=== PATIENT | female | born 1960 | race Native Hawaiian/Other Pacific Islander ===

== ENCOUNTER 2021-05-29 16:32 | Inpatient (IN) | payer SELFPAY ==
[~2021-05-29] VITALS: Ht 162.6 cm; Wt 143.4 kg
[2021-05-29] MEDS ORDERED: ONDANSETRON 4 MG/2 ML (SDV) Z0FRAN IV PRN (16:45)
[2021-05-29] MEDS ORDERED: guaiFENesin/CODEINE (ROBITUSSIN AC) 10ML UDC PO PRN (16:45)
[2021-05-30] VITALS (30 sets, daily range): BP systolic 73–146; BP diastolic 29–83
[2021-05-30] MEDS: NOREPINEPHRINE 8 MG/250 ML 250 ML IV SCH ×6 (05:22→21:44)
[2021-05-30] MEDS: fentaNYL DRIP PRE-MIX 250 ML IV SCH ×3 (05:26→20:32)
[2021-05-30] MEDS: PROPOFOL DRIP (ICU) 100 ML IV SCH ×4 (05:26→20:31)
[2021-05-30 05:52] LABS: BASOPHILS % (AUTO) 0 % (0-10); EOSINOPHILS % (AUTO) 0 % (0-10); HEMATOCRIT 50 % (35-52); HEMOGLOBIN 15.6 g/dL (11.5-16.0); LYMPHOCYTES # (AUTO) 0.7 10^3/uL (1.0-4.0); LYMPHOCYTES % (AUTO) 6 % (12-44); MEAN CORPUSCULAR HEMOGLOBIN 30 pg (25-34); MEAN CORPUSCULAR HGB CONC 31 g/dL (32-36); MEAN CORPUSCULAR VOLUME 97 fL (80-99); MEAN PLATELET VOLUME 10.6 fL (9.0-12.2); MONOCYTES # (AUTO) 0.7 10^3/uL (0.0-1.0); MONOCYTES % (AUTO) 6 % (0-12); NEUTROPHILS # (AUTO) 10.4 10^3/uL (1.8-7.8); NEUTROPHILS % (AUTO) 88 % (42-75); PLATELET COUNT 218 10^3/uL (130-400); WHITE BLOOD COUNT 11.8 10^3/uL (4.3-11.0)
[2021-05-30 05:59] LABS: ABG BASE EXCESS -1.6 MMOL/L (-2.5-2.5); ABG OXYGEN SATURATION 97 % (94-100); ABG PCO2 60 MMHG (35-45); ABG PO2 115 MMHG (79-93)
[2021-05-30 06:01] LABS: POTASSIUM 4.5 MMOL/L (3.6-5.0)
[2021-05-30 06:01] LABS: ABG PH 7.25 (7.37-7.43)
[2021-05-30 06:02] LABS: ALLENS TEST YES-POS; INSPIRED O2 100%; PATIENT TEMP 101.9; VENTILATOR YES
[2021-05-30 06:07] LABS: CREATININE SERUM 1.07 MG/DL (0.60-1.30); PHOSPHORUS 5.5 MG/DL (2.3-4.7)
[2021-05-30 06:09] LABS: MAGNESIUM 2.1 MG/DL (1.6-2.4)
[2021-05-30] MEDS: KCL 20 MEQ TAB (K-DUR) PO SCH (06:48)
[2021-05-30] MEDS: POTASSIUM CL 10MEQ/50ML IVPB 50 ML IV SCH (06:55)
[2021-05-30] MEDS: MAGNESIUM 1 GM/100 ML IVPB 100 ML IV SCH (06:55)
--- NOTE | 2021-05-30 06:55 | Diagnostic Imaging Report ---
EXAMINATION: Chest 1 view HISTORY: Pneumonia COMPARISON: None available. FINDINGS: Heart size is enlarged. Endotracheal tube is present approximately 4 cm above the sosa. An enteric catheter is seen coursing below the diaphragm. There are low lung volumes with patchy interstitial opacities seen throughout both lungs. No pleural effusion or pneumothorax. The osseous structures are intact. IMPRESSION: 1. Cardiomegaly with patchy interstitial opacities seen throughout both lungs compatible with history of COVID 19 and pneumonia. 2. Enteric catheter and endotracheal tube in appropriate position. Report was faxed to [facility] by abena at 6:53am. Dictated by: Dictated on workstation # [id number]
[2021-05-30] MEDS ORDERED: ENOXAPARIN 40 MG/0.4 ML (LOVENOX) SYR SC SCH (07:00)
--- NOTE | 2021-05-30 07:33 | Tele-ICU Consult ---
History of Present Illness History of Present Illness Date Seen by Provider: May 30, 2021 Time Seen by Provider: 07:33 Date of Admission Allergies and Home Medications Allergies Coded Allergies: No Allergy Information Available (Unverified , 05/29/21) Past Medical/Social/Family Hx Patient Social History Smoking Status: Unknown if Ever Smoked Smokeless Tobacco Frequency: Unknown if Ever Used E-Cig and/or Vaping Freq: Unknown if Ever Used Substance use?: Unable to obtain Pt stated abuse/neglect: Unable to obtain Current Status Advance Directives: Unable to obtain Communicates: Unable To Communicate Review of Systems Constitutional: see HPI Sepsis Event Evaluation Height, Weight, BMI Height: '" Weight: lbs. oz. kg; 48.67 BMI Method: Exam Exam Patient acknowledged, consented, and participated in this virtual visit which was conducted using real time audio/video Vital Signs Date Time Temp Pulse Resp B/P (MAP) Pulse Ox O2 Delivery O2 Flow Rate FiO2 05/30/21 06:45 111 17 120/51 (74) 93 Mechanical Ventilator 100.00 05/30/21 06:38 109 20 94 100 05/30/21 06:30 112 18 108/41 (63) 94 Mechanical Ventilator 100.00 05/30/21 06:15 113 18 108/53 (66) 95 Mechanical Ventilator 100.00 05/30/21 06:00 111 18 100/50 (63) 95 Mechanical Ventilator 100.00 05/30/21 05:55 108 31 103/57 (80) 94 Mechanical Ventilator 100.00 05/30/21 05:55 100 103/87 05/30/21 05:45 113 18 82/34 (59) 93 Mechanical Ventilator 100.00 05/30/21 05:45 105 82/34 05/30/21 05:43 113 18 76/29 (53) 92 Mechanical Ventilator 100.00 05/30/21 05:36 115 18 91 100 05/30/21 05:34 113 38 73/45 (56) 91 Mechanical Ventilator 100.00 05/30/21 05:31 118 64/38 05/30/21 05:23 117 05/30/21 05:22 38.9 117 20 81/41 (54) 83 Mechanical Ventilator 100.00 05/30/21 05:22 117 81/41 05/30/21 05:15 Mechanical Ventilator 100 Height & Weight Height: '" Weight: lbs. oz. kg; 48.67 BMI Method: General Appearance: No Apparent Distress Results Lab Laboratory Tests 05/30/21 05:45 Assessment/Plan Assessment/Plan Tele-ICU Physician , consultation) Available chart/ vitals / labs / Images reviewed transferred from other hospotal / state allergy reviewed in EMR. ROS is unobtainable Patient admitted 05/30 - ARF , COVID , intubated 03/29 - > trnsferred to ICU Now in ICU, hemodynamically stable Video assessment done using teleICU camera, rest of exam as per RN Discussed with RN. Consultants: Sedation gtt: ( RASS ) VENT SETTINGS. AC 18 -490 -100% +18 . PAP 35 ABG reviewed A/P AHRF / ARDS due to severe COVID19 - intubated 03/30 AC 18 -490 -100% +18 . PAP 35 - will adjust vent accordisng ARDS protocol with tv 7 cc/kg IBW -> AC rr 26 tv 400 100 + 18 -prone position if able - conservative fluid strategy (aim for even or negative fluid balance HJJB-Xdfizrqudlg-9/COVID-19 PNA ( Not vaccinated , Dx 05/29 ) -Remdesivir- as per local MD ( given sever dz no major clinical benefit ) -Steroids IV - started 05/29 -Hypercoagulable state - will check DDIMER , on lovenox ppx dose now Shock - on levo , will check PCT - ? infection , will gollow coffee grounf NG - ? GIB monitor for superimposed bact PNA - ordering PCT -Cx sputum , blood , ua Hyperflycemia - ISS , close f/up on steroids Coffee grounds secretion on OG - PPI bid , follow H/o asthma - monitor airway pressure - might need higher dose of steroids - br- dilators h/o ETOH - start thiamine Lines : will need PICC or central line (Central Line Necessity Reviewed) Anton: 05/29 OG: + Nutrition: Analgesia: Anxiety/ delirium VTE Prophylaxis: lovenoc proph Stress Ulcer Prophylaxis: ppi Glycemic Control: + Plans in collaboration with bedside consultants and IM MDs. Discussed with RN to reach out if any questions or concerns A total of 40 minutes of critical care time was devoted to this patient today, required to treat and/or prevent further deterioration of critical care condition ( as above ) . FAVIO FOREMAN MD May 30, 2021 07:33
[2021-05-30 07:39] LABS: ALBUMIN 3.5 GM/DL (3.2-4.5)
[2021-05-30 07:42] LABS: TOTAL PROTEIN 7.2 GM/DL (6.4-8.2)
[2021-05-30 07:44] LABS: BILIRUBIN,TOTAL 2.7 MG/DL (0.1-1.0)
[2021-05-30 07:48] LABS: BILIRUBIN,DIRECT 2.1 MG/DL (0.0-0.3); BILIRUBIN,INDIRECT 0.6 MG/DL
[2021-05-30] MEDS: PANTOPRAZOLE 40 MG (PROTONIX) VIAL IV SCH ×2 (08:10→20:38)
--- NOTE | 2021-05-30 08:53 | History & Physical-Hospitalist ---
History of Present Illness HPI/Chief Complaint Pt is a 60yoCF with a PMH of asthma who presented to an outside ER in [place], [place] due to SOB. She is intubated and sedated and no ROS possible. All ROS is from the chart and from her . He reports that he got COVID last week and she had been caring for him. 1 week ago she started to feel ill and yesterday acutely worsened. Her main symptoms were SOB and weakness. Her states that he was barely able to get her to the car to bring her to the ER. On arrival to the ER she was hypoxic in the 70s and placed on HFNC without much improvement so was plced on Vapotherm. The ER in [place] attempted to transfer her to over 30 facilities for ICU level care. She continued to decompensate in the ER and intubation prior to transfer was felt to be the safest route. Source: patient Date Seen 05/30/21 Time Seen by a Provider: 08:48 Attending Physician Chuck Spears MD PCP Referring Physician Date of Admission May 30, 2021 at 05:13 Home Medications & Allergies Home Medications Reviewed patient Home Medication Reconciliation performed by pharmacy medication reconciliations transport technician and/or nursing. Patients Allergies have been reviewed. Allergies Allergies Coded Allergies No Allergy Information Available (Unverified05/29/21) Past Zeralbg-Rruaeu-Xpzeel Hx Patient Social History Marrital Status: Smoking Status: Former Smoker Substance use?: No Additional alcohol type: quit one month ago Pt feels they are or have been: Unable to obtain Immunizations Up To Date First/Initial COVID19 Vaccinat: unvaccinated Current Status Advance Directives: Unable to obtain Communicates: Unable To Communicate Past Medical History Asthma Family Medical History Reviewed Nursing Family Hx No Pertinent Family Hx Review of Systems Constitutional: see HPI Physical Exam Physical Exam Vital Signs Vital Signs - First Documented 05/30/21 05/30/21 05:15 05:22 Temp 38.9 Pulse 117 Resp 20 B/P (MAP) 81/41 Pulse Ox 83 O2 Delivery Mechanical Ventilator O2 Flow Rate 100.00 FiO2 100 Capillary Refill : Height, Weight, BMI Height: '" Weight: lbs. oz. kg; 48.67 BMI Method: General Appearance: Chronically ill, Obese, Other (intubated and sedated) HEENT: Moist Mucous Membranes; No Scleral Icterus (L), No Scleral Icterus (R) Neck: Normal Inspection, Supple Respiratory: Rhonci; No Wheezing; Other (on vent) Cardiovascular: No Murmur, Tachycardia Gastrointestinal: Normal Bowel Sounds, Non Tender, Soft Results Results/Procedures Labs Laboratory Tests 05/30/21 05:45 Patient resulted labs reviewed. Assessment/Plan Admission Diagnosis Acute hypoxic respiratory failure Admission Status: Inpatient Order (span 2 midnights) Reason for Inpatient Admission: see below Assessment and Plan Acute hypoxic respiratory failure due to COVID19 Asthma Currently sedated and on ventilator TeleICU consulted for vent management, appreciate recs Solumedrol Procal slightly up today, if stabilizes or lower tomrorow will consider baricitnib Prone as able MAT protocol Continue IV abx Elevated troponin troponin at outside facility 0.2 trend Telemetry H/o alcohol abuse chronic transaminitis Trend liver enzymes Per she quite drinking 1 month ago Hyperglycemia denies history of DM Likely due to steroids Diagnosis/Problems Diagnosis/Problems (1) COVID-19 (2) Asthma Qualifiers: Asthma severity: moderate Asthma persistence: persistent Asthma complic ation type: unspecified Qualified Codes: J45.40 - Moderate persistent asthma, uncomplicated (3) Obesity (4) Transaminitis (5) Acute respiratory failure CHUCK SPEARS MD May 30, 2021 08:53
[2021-05-30] MEDS ORDERED: THIAMINE 100 MG/ML 2 ML (VITAMIN B-1) VIAL IV ONE (09:00)
[2021-05-30] MEDS ORDERED: HYDROmorphone 2 MG/ML VIAL (DILAUDID) ONE (09:12)
[2021-05-30] MEDS ORDERED: HYDROmorphone 2 MG/ML VIAL (DILAUDID) IV PRN (09:15)
[2021-05-30] MEDS ORDERED: ROCURONIUM 10 MG/ML 5 ML SYRINGE IV ONE ×2 (09:27→09:29)
[2021-05-30] MEDS ORDERED: methylPREDNISolone 125 MG (Solu-MEDROL) VIAL ONE (09:30)
[2021-05-30] MEDS ORDERED: meTOprolol 5 MG/5 ML (LOPRESSOR) VIAL ONE (09:32)
[2021-05-30] MEDS ORDERED: meTOprolol 5 MG/5 ML (LOPRESSOR) VIAL IV ONE ×2 (09:45→10:30)
[2021-05-30] MEDS ORDERED: FUROSEMIDE 40 MG/4 ML INJ (LASIX) ONE (09:51)
[2021-05-30] MEDS ORDERED: FUROSEMIDE 40 MG/4 ML INJ (LASIX) IVP ONE (10:00)
[2021-05-30] MEDS ORDERED: ACETAMINOPHEN 500 MG TAB (TYLENOL) PO ONE (10:00)
[2021-05-30] MEDS: RT-ALBUTEROL HFA 8.5 GM INHALER IH SCH ×4 (10:08→22:13)
[2021-05-30] MEDS: cefTRIAXone 1,000 MG in WATER (STERILE) FOR INJECTION 10 ML IV SCH (10:22)
[2021-05-30] MEDS: LACTATED RINGERS 1,000 ML IV SCH ×2 (10:22→20:35)
[2021-05-30] MEDS: methylPREDNISolone 40 MG/ML (Solu-MEDROL) VIAL IV SCH ×2 (10:30→21:42)
[2021-05-30] MEDS: CISATRACURIUM DRIP 250 ML IV SCH ×4 (10:40→23:27)
[2021-05-30] MEDS ORDERED: IPRA0.2S51 IH (10:43)
[2021-05-30] MEDS ORDERED: FLUT1BLS10 IH (10:43)
[2021-05-30] MEDS ORDERED: ALB0.5V INH (10:43)
[2021-05-30] MEDS ORDERED: RT-ALBUINH IH (10:43)
[2021-05-30] MEDS ORDERED: IBUP-2185 PO (10:43)
[2021-05-30] MEDS ORDERED: MONT10TA32 PO (10:43)
[2021-05-30] MEDS ORDERED: ACET-2267 PO (10:43)
[2021-05-30] MEDS ORDERED: TIOT4MIS2 IH (10:43)
[2021-05-30] MEDS: inSUlin ASPART (NovoLOG) 1 UNIT/0.01 ML (CHARGE PER UNIT) SC SCH ×4 (11:40→23:06)
--- NOTE | 2021-05-30 11:59 | Diagnostic Imaging Report ---
INDICATION: Line placement. FINDINGS: The catheter via the left upper extremity has its distal tip at or just below the junction of the innominate and upper SVC. The ET tube is in the mid thoracic trachea. The heart size is prominent but unchanged. Some patchy 5 lobed interstitial opacities are unchanged. IMPRESSION: 1. The left-sided catheter tip distally is near the junction of the innominate/upper SVC. 2. Bilateral infiltrates and upper limits heart size are unchanged. 3. No pneumothorax. Dictated by: Dictated on workstation # [id number]
[2021-05-30] MEDS: ESMOLOL DRIP PREMIX 250 ML IV SCH ×2 (12:00→18:01)
--- NOTE | 2021-05-30 12:22 | CONSULTATION REPORT ---
DATE OF SERVICE: 05/30/2021 HISTORY OF PRESENT ILLNESS: The patient is a 60-year-old female with past medical history of asthma, who was transferred to [facility] ICU due to symptomatic COVID-19 infection and lack of ICU critical care beds in the entire state of [place] in [place]. She is from [place], [place] and developed shortness of breath and was conservatively treated; however, she continued to have worsening shortness of breath requiring intubation. When she was seen in the Emergency Department, her oxygen saturations were in the 70s and she was placed on high-flow nasal cannula oxygen; however, she continued to decompensate requiring intubation. The patient is also hypotensive and will require central venous catheter for multiple medications simultaneously. PAST MEDICAL HISTORY: Asthma. PAST SURGICAL HISTORY: None known. ALLERGIES: No known drug allergies. MEDICATIONS: Albuterol inhaler 1 puff q.4 hours p.r.n., montelukast 10 mg daily, Spiriva 2 puffs daily, ipratropium bromide 0.2 mg q.8 hours p.r.n., fluticasone/salmeterol b.i.d. SOCIAL HISTORY: Previous smoker. Previous alcohol; however, quit approximately one month ago. FAMILY HISTORY: Unknown. VITAL SIGNS: Temperature 39.1, blood pressure 88/59, pulse 126, respirations 26, mechanical ventilation, 100% FiO2 and a pulse oximetry of 83%. REVIEW OF SYSTEMS: This is a critically ill patient currently on the vent and sedated. She does not respond to any stimulus. She was experiencing significant shortness of breath and does have a history of asthma. No known chest pain, palpitations, diaphoresis. No nausea, vomiting, no diarrhea or constipation. She also does report fevers and has been afebrile since being admitted. PHYSICAL EXAMINATION: CHEST: Scattered rales bilaterally. HEART: Regular, no murmurs. EXTREMITIES: No lower extremity edema, negative Homans sign. HEENT: No scleral icterus. NECK: No cervical lymphadenopathy. ABDOMEN: Soft, nontender, nondistended. SKIN: Warm, dry. LABORATORY DATA: WBC 11.8, hemoglobin 15.6, hematocrit 50, platelets 218, BUN 20, creatinine 1.07. Total bilirubin 2.7, AST 169, ALT 98. ASSESSMENT AND PLAN: A 60-year-old female in respiratory failure secondary to COVID-19 delta variant, who continues to be hypoxic while on 100% FiO2 ventilator and also is hypotensive and will require multiple IV medications simultaneously and will require a central venous catheter, which we will place. Job ID: [id number] DocumentID: [id number] Dictated Date: 05/30/2021 12:00:49 Slider Assembler Date: 05/30/2021 12:21:36 Dictated By: LINDY MOE MD
[2021-05-30] MEDS ORDERED: ENOXAPARIN 100 MG/1 ML (LOVENOX) SYR SC NR (13:45)
--- NOTE | 2021-05-30 14:52 | Consultation-Cardiology ---
HPI-Cardiology Cardiology Consultation Date of Consultation 05/30/21 Date of Admission Time Seen by Provider: 14:46 Indication: Elevated troponin level HPI 60 years old lady, intubated, sedated, unable to provide any history, history was obtained by reviewing her record. Patient was admitted with acute respiratory failure secondary to COVID-19 infection that she required last week, she started to feel ill and having worsening symptoms and became short of breath and weak, she was barely able to get to her car prior to arriving to the emergency room. On arrival to the ER patient was hypoxic, proceeded to respiratory failure and she was initially on Vapotherm then she is intubated and now she is in prone positioning. She was noted to have elevation in troponin level. Had episodes of tachycardia Home Medications & Allergies Allergies: Coded Allergies: No Allergy Information Available (Unverified , 05/29/21) Home Medication List Reviewed: Yes BNF-Wtipvx-Gnmadq Hx Patient Social History Marital Status: Smoking Status: Former Smoker Have you traveled recently?: Unable to obtain Past Medical History Unable to provide past medical history Family Medical History Significant Family History: No Pertinent Family Hx Family Medical Hx Unable to provide family history Review of Systems-General Review of Systems Constitutional: see HPI, other (Sedated and intubated, unable to provide review of system other than what was described above) Reviewed Test Results Reviewed Test Results Lab Laboratory Tests Test 05/30/21 05:45 05/30/21 05:55 05/30/21 08:40 05/30/21 11:10 Range/Units White Blood Count 11.8 H 4.3-11.0 10^3/uL Red Blood Count 5.16 H 3.80-5.11 10^6/uL Hemoglobin 15.6 11.5-16.0 g/dL Hematocrit 50 35-52 % Mean Corpuscular Volume 97 80-99 fL Mean Corpuscular Hemoglobin 30 25-34 pg Mean Corpuscular Hemoglobin Concent 31 L 32-36 g/dL Red Cell Distribution Width 13.8 10.0-14.5 % Platelet Count 218 130-400 10^3/uL Mean Platelet Volume 10.6 9.0-12.2 fL Immature Granulocyte % (Auto) 0 % Neutrophils (%) (Auto) 88 H 42-75 % Lymphocytes (%) (Auto) 6 L 12-44 % Monocytes (%) (Auto) 6 0-12 % Eosinophils (%) (Auto) 0 0-10 % Basophils (%) (Auto) 0 0-10 % Neutrophils # (Auto) 10.4 H 1.8-7.8 10^3/uL Lymphocytes # (Auto) 0.7 L 1.0-4.0 10^3/uL Monocytes # (Auto) 0.7 0.0-1.0 10^3/uL Eosinophils # (Auto) 0.0 0.0-0.3 10^3/uL Basophils # (Auto) 0.0 0.0-0.1 10^3/uL Immature Granulocyte # (Auto) 0.1 0.0-0.1 10^3/uL Sodium Level 139 135-145 MMOL/L Potassium Level 4.5 3.6-5.0 MMOL/L Chloride Level 104 98-107 MMOL/L Carbon Dioxide Level 22 21-32 MMOL/L Anion Gap 13 5-14 MMOL/L Blood Urea Nitrogen 20 H 7-18 MG/DL Creatinine 1.07 0.60-1.30 MG/DL Estimat Glomerular Filtration Rate 52 BUN/Creatinine Ratio 19 Glucose Level 204 H 70-105 MG/DL Calcium Level 9.0 8.5-10.1 MG/DL Phosphorus Level 5.5 H 2.3-4.7 MG/DL Magnesium Level 2.1 1.6-2.4 MG/DL Total Bilirubin 2.7 H 0.1-1.0 MG/DL Direct Bilirubin 2.1 H 0.0-0.3 MG/DL Indirect Bilirubin 0.6 MG/DL Aspartate Amino Transf (AST/SGOT) 169 H 5-34 U/L Alanine Aminotransferase (ALT/SGPT) 98 H 0-55 U/L Alkaline Phosphatase 884 H 40-136 U/L Total Protein 7.2 6.4-8.2 GM/DL Albumin 3.5 3.2-4.5 GM/DL Triglycerides Level 154 H <150 MG/DL Procalcitonin 1.80 H <0.10 NG/ML Blood Gas Puncture Site LEFT RADIAL Blood Gas Patient Temperature 101.9 Arterial Blood pH 7.25 *L 7.37-7.43 Arterial Blood Partial Pressure CO2 60 H 35-45 MMHG Arterial Blood Partial Pressure O2 115 H 79-93 MMHG Arterial Blood HCO3 24 23-27 MMOL/L Arterial Blood Total CO2 26.0 21.0-31.0 MMOL/L Arterial Blood Oxygen Saturation 97 94-100 % Arterial Blood Base Excess -1.6 -2.5-2.5 MMOL/L Luke Test YES-POS Blood Gas Ventilator Setting YES Blood Gas Inspired Oxygen 100% Lactic Acid Level 1.61 0.50-2.00 MMOL/L Glucometer 132 H 70-110 MG/DL Test 05/30/21 11:45 05/30/21 12:50 Range/Units D-Dimer 2.43 H 0.00-0.49 UG/ML Troponin I 9.603 *H <0.028 NG/ML Physical Exam Physical Exam Vital Signs Vital Signs - First Documented 05/30/21 05/30/21 05:15 05:22 Temp 38.9 Pulse 117 Resp 20 B/P (MAP) 81/41 Pulse Ox 83 O2 Delivery Mechanical Ventilator O2 Flow Rate 100.00 FiO2 100 Capillary Refill : Height, Weight, BMI Height: '" Weight: lbs. oz. kg; 48.67 BMI Method: General Appearance: Chronically ill, Obese, Other (intubated and sedated) HEENT: Moist Mucous Membranes; No Scleral Icterus (L), No Scleral Icterus (R) Neck: Normal Inspection, Supple Respiratory: Rhonci; No Wheezing; Other (on vent) Cardiovascular: Tachycardia Neurologic/Psychiatric: Other (Sedated and intubated) A/P-Cardiology Admission Diagnosis Acute respiratory failure Sinus tachycardia Type II myocardial infarction COVID-19 pneumonia Assessment/Plan Acute respiratory failure secondary to COVID-19 pneumonia, sedated and intubated, in prone positioning, managed by primary care team. Paroxysmal atrial tachycardia/sinus tachycardia secondary to respiratory failure and hypoxemia in addition to agitation, receiving IV beta-blockers as needed. Continue to monitor heart rate Elevated troponin level, probably type II myocardial infarction secondary to severe hypoxemia and tachycardia, underlying coronary artery disease cannot be excluded. We will continue monitoring and trending. Started on Lovenox 100 mg subcutaneous twice daily. Continue to monitor Abnormal EKG with poor R wave progression in the anterior leads suggestive of old myocardial infarction, it could be secondary to positioning of the lead and respiratory failure. Continue to monitor the trend. Elevated liver enzymes, secondary to sepsis, receiving IV fluids, continue to monitor Obesity, BMI 48. Ventilator dependent. At this point I recommend supportive care, continue with IV fluid, the use of beta-blockers as needed, planning to evaluate 2D echo. Improve oxygenation and ventilation, monitor serial x-ray and monitor EKG closely. CARLA GODDARD MD May 30, 2021 14:52
[2021-05-30 14:54] LABS: ABG BASE EXCESS -5.3 MMOL/L (-2.5-2.5); ABG OXYGEN SATURATION 90 % (94-100); ABG PCO2 53 MMHG (35-45); ABG PO2 82 MMHG (79-93)
[2021-05-30 14:58] LABS: ABG PH 7.23 (7.37-7.43)
[2021-05-30 14:59] LABS: INSPIRED O2 100%; PATIENT TEMP 39.4; VENTILATOR NO
--- NOTE | 2021-05-30 15:30 | OPERATIVE REPORT ---
DATE OF SERVICE: 05/30/2021 ADMITTING PHYSICIAN: Dr. Spears. PREOPERATIVE DIAGNOSIS: COVID-19 respiratory failure and critical illness. POSTOPERATIVE DIAGNOSIS: COVID-19 respiratory failure and critical illness. PROCEDURE: Placement of left subclavian central venous catheter. SURGEON: Lindy Moe MD. ANESTHESIA: General. ESTIMATED BLOOD LOSS: Minimal. DISPOSITION: The patient tolerated the procedure well. INDICATIONS: The patient is a 60-year-old female who is from [place], [place]. She was found to be COVID positive and was initially treated conservatively at home; however, she had worsening shortness of breath requiring high flow oxygen; however, her oxygen saturations continued to be low in the 70s requiring intubation. As of now, there are no ICU beds available in the [facility] [place] and she was transferred to [facility] for ICU critical care. She continues to be hypoxic with oxygen saturation of 83 on 100% FiO2 and also hypotensive and will require multiple medications simultaneously and will require central venous catheter. DESCRIPTION OF PROCEDURE: The chest and neck were prepped and draped in standard surgical fashion. The left subclavian vein was then cannulated with drawing of venous blood. The guidewire was then inserted without any resistance. Cannulating needle removed and a skin incision made using 11 blade. A tract was then created using a venous dilator and central venous catheter was placed over the guidewire using the Seldinger technique. The guidewire was then removed and all three ports lyle venous blood and saline pushed in without any resistance. The catheter was sutured to the skin using interrupted 3-0 silk sutures. Catheter was then cleaned and covered with Dermabond. The patient tolerated the procedure well. We will get a post-procedure chest x-ray. Job ID: [id number] DocumentID: [id number] Dictated Date: 05/30/2021 12:04:03 Child Welfare Director Date: 05/30/2021 15:29:32 Dictated By: LINDY MOE MD
[2021-05-30 15:53] LABS: CALCIUM 8.5 MG/DL (8.5-10.1); CREATININE SERUM 2.22 MG/DL (0.60-1.30); POTASSIUM 3.8 MMOL/L (3.6-5.0)
[2021-05-30] MEDS ORDERED: LACTATED RINGERS 1,000 ML IV SCH (17:15)
[2021-05-31] VITALS (30 sets, daily range): BP systolic 56–125; BP diastolic 41–78
[2021-05-31] MEDS: ESMOLOL DRIP PREMIX 250 ML IV SCH ×4 (01:06→20:07)
[2021-05-31] MEDS: PROPOFOL DRIP (ICU) 100 ML IV SCH ×7 (01:07→22:32)
[2021-05-31] MEDS: NOREPINEPHRINE 8 MG/250 ML 250 ML IV SCH ×5 (01:10→16:49)
[2021-05-31 01:28] LABS: CLARITY,URINE SL CLOUDY; COLOR,URINE ORANGE; GLUCOSE, URINE (UA) TRACE (NEGATIVE); KETONES,URINE NEGATIVE (NEGATIVE); LEUKOCYTE ESTERASE ,URINE NEGATIVE (NEGATIVE); NITRITE,URINE NEGATIVE (NEGATIVE); PROTEIN,URINE 2+ (NEGATIVE)
[2021-05-31 01:41] LABS: AMORPHOUS SEDIMENT,UR FEW AMOR URATES /LPF; BACTERIA,URINE MODERATE /HPF; RBC,URINE 0-2 /HPF; RENAL EPITHELIAL CELLS,URINE 0-2 /HPF; SQUAMOUS EPITHELIAL CELL,UR 0-2 /HPF; WAXY CASTS,URINE 0-2 /LPF; WBC,URINE 0-2 /HPF
[2021-05-31] MEDS: RT-ALBUTEROL HFA 8.5 GM INHALER IH SCH ×6 (03:06→21:58)
[2021-05-31] MEDS: fentaNYL DRIP PRE-MIX 250 ML IV SCH ×4 (03:12→20:49)
[2021-05-31 03:29] LABS: ABG BASE EXCESS -7.8 MMOL/L (-2.5-2.5); ABG OXYGEN SATURATION 90 % (94-100); ABG PCO2 51 MMHG (35-45); ABG PO2 76 MMHG (79-93); ABG TCO2 20.1 MMOL/L (21.0-31.0)
[2021-05-31 03:30] LABS: BASOPHILS # (AUTO) 0.1 10^3/uL (0.0-0.1); BASOPHILS % (AUTO) 0 % (0-10); EOSINOPHILS % (AUTO) 0 % (0-10); HEMATOCRIT 49 % (35-52); HEMOGLOBIN 15.2 g/dL (11.5-16.0); LYMPHOCYTES # (AUTO) 1.3 10^3/uL (1.0-4.0); LYMPHOCYTES % (AUTO) 6 % (12-44); MEAN CORPUSCULAR HEMOGLOBIN 30 pg (25-34); MEAN CORPUSCULAR HGB CONC 31 g/dL (32-36); MEAN CORPUSCULAR VOLUME 97 fL (80-99); MEAN PLATELET VOLUME 10.8 fL (9.0-12.2); MONOCYTES # (AUTO) 0.8 10^3/uL (0.0-1.0); MONOCYTES % (AUTO) 4 % (0-12); NEUTROPHILS # (AUTO) 17.4 10^3/uL (1.8-7.8); NEUTROPHILS % (AUTO) 83 % (42-75); PLATELET COUNT 256 10^3/uL (130-400)
[2021-05-31 03:31] LABS: ALLENS TEST POSITIVE; INSPIRED O2 100; PATIENT TEMP 38.5; VENTILATOR YES
[2021-05-31 03:39] LABS: POTASSIUM 4.5 MMOL/L (3.6-5.0)
[2021-05-31 03:40] LABS: CALCIUM 8.1 MG/DL (8.5-10.1)
[2021-05-31 03:45] LABS: CREATININE SERUM 3.11 MG/DL (0.60-1.30); PHOSPHORUS 4.9 MG/DL (2.3-4.7)
[2021-05-31 03:47] LABS: MAGNESIUM 1.8 MG/DL (1.6-2.4)
[2021-05-31] MEDS: CISATRACURIUM DRIP 250 ML IV SCH ×5 (04:22→22:31)
[2021-05-31] MEDS: LACTATED RINGERS 1,000 ML IV SCH ×2 (05:21→14:46)
[2021-05-31] MEDS: KCL 20 MEQ TAB (K-DUR) PO SCH (05:22)
[2021-05-31] MEDS: inSUlin ASPART (NovoLOG) 1 UNIT/0.01 ML (CHARGE PER UNIT) SC SCH ×3 (05:22→18:36)
[2021-05-31] MEDS: methylPREDNISolone 40 MG/ML (Solu-MEDROL) VIAL IV SCH ×3 (05:22→22:32)
[2021-05-31] MEDS: MAGNESIUM 1 GM/100 ML IVPB 100 ML IV SCH (05:27)
[2021-05-31] MEDS: POTASSIUM CL 10MEQ/50ML IVPB 50 ML IV SCH (05:27)
[2021-05-31 06:31] LABS: BAND NEUTROPHILS 50 %; LYMPHOCYTES % (MANUAL) 6 %; MONOCYTES % (MANUAL) 3 %; NEUTROPHILS % (MANUAL) 21 %
[2021-05-31 06:32] LABS: ANISOCYTOSIS SLIGHT; ATYPICAL LYMPHOCYTES 1 %; METAMYELOCYTES % 8 %; MYELOCYTES % 11 %; POIKILOCYTOSIS SLIGHT; TOXIC GRANULATION/VACUOLAZATIO 2+
[2021-05-31] MEDS ORDERED: LACTATED RINGERS 500 ML IV ONE (08:15)
[2021-05-31] MEDS: cefTRIAXone 1,000 MG in WATER (STERILE) FOR INJECTION 10 ML IV SCH (08:21)
[2021-05-31] MEDS: PANTOPRAZOLE 40 MG (PROTONIX) VIAL IV SCH ×2 (08:21→20:49)
--- NOTE | 2021-05-31 09:09 | Progress Note - Hospitalist ---
Subjective HPI/CC On Admission Date Seen by Provider: May 31, 2021 Time Seen by Provider: 09:03 Pt is a 60yoCF with a PMH of asthma who presented to an outside ER in [place], [place] due to SOB. She is intubated and sedated and no ROS possible. All ROS is from the chart and from her . He reports that he got COVID last week and she had been caring for him. 1 week ago she started to feel ill and yesterday acutely worsened. Her main symptoms were SOB and weakness. Her states that he was barely able to get her to the car to bring her to the ER. On arrival to the ER she was hypoxic in the 70s and placed on HFNC without much improvement so was plced on Vapotherm. The ER in [place] attempted to transfer her to over 30 facilities for ICU level care. She continued to decompensate in the ER and intubation prior to transfer was felt to be the safest route. Subjective/Events-last exam Pt is a intuabted and sedated. No ROS possible. I called and updatd her Jabari to current issues with renal function and delicate balance of managing fluids in COVID with increasing creatinine and high oxygen requirement. Focused Exam Lactate Level 05/30/21 08:40: Lactic Acid Level 1.61 Objective Exam Vital Signs Vital Signs Date Time Temp Pulse Resp B/P (MAP) Pulse Ox O2 Delivery O2 Flow Rate FiO2 05/31/21 08:45 97 99/60 05/31/21 07:03 26 94 100 05/31/21 06:00 37.9 Mechanical Ventilator 100.00 Capillary Refill : General Appearance: Obese, Other (intubated and sedated) Respiratory: Rhonci; No Wheezing; Other (on vent) Cardiovascular: Regular Rate, Rhythm, No Murmur Gastrointestinal: Normal Bowel Sounds, Non Tender, Soft Genital/Rectal: Other (son in place) Extremity: Pedal Edema Neurologic/Psychiatric: Other (sedated and paralyzed) Results/Procedures Lab Laboratory Tests 05/30/21 15:15 05/31/21 03:10 Patient resulted labs reviewed. Assessment/Plan Assessment and Plan Assess & Plan/Chief Complaint Acute hypoxic respiratory failure due to COVID19 Asthma Shock Currently sedated and paralyzed on ventilator, tolerating proning TeleICU consulted for vent management, appreciate recs Solumedrol Procal slightly up today, if stabilizes or lower tomorrow will consider baricitnib MAT protocol Continue IV abx undifferentiated shock- currently on levophed, mostly likely septic Acute renal failure Creatinine up to 3.11 today from 1.07 yesterday morning Has made just under 600ml of urine since admission Bolus ordered by Dr Frias Monitor renal function closely As she is paralyzed and on such high vent settings I worry she is too un stable for transfer but if continue with oliguria will have to consider transfer for nephrology is able Elevated troponin troponin at outside facility 0.2 up to 9.6 yesterday Cardiology consulted, appreciate recs- plan for conservative management Telemetry H/o alcohol abuse chronic transaminitis Trend liver enzymes Per she quit drinking 1 month ago Thiamine ordered Hyperglycemia- improved denies history of DM Likely due to steroids Diagnosis/Problems Diagnosis/Problems (1) COVID-19 (2) Asthma Qualifiers: Asthma severity: moderate Asthma persistence: persistent Asthma complication type: unspecified Qualified Codes: J45.40 - Moderate persistent asthma, uncomplicated (3) Obesity (4) Transaminitis (5) Acute respiratory failure CHUCK DE LEÓN MD May 31, 2021 09:09
[2021-05-31] MEDS ORDERED: NS IV 1000 ML 1,000 ML ONE (09:22)
[2021-05-31] MEDS ORDERED: ROCURONIUM 10 MG/ML 5 ML SYRINGE IV ONE (09:30)
--- NOTE | 2021-05-31 09:35 | Tele-ICU Progress Note ---
Subjective Date Seen by a Provider: May 31, 2021 Time Seen by a Provider: 09:35 Sepsis Event Evaluation Height, Weight, BMI Height: '" Weight: lbs. oz. kg; 48.67 BMI Method: Focused Exam Lactate Level 05/30/21 08:40: Lactic Acid Level 1.61 Exam Exam Patient acknowledged, consented, and participated in this virtual visit which was conducted using real time audio/video Vital Signs Date Time Temp Pulse Resp B/P (MAP) Pulse Ox O2 Delivery O2 Flow Rate FiO2 05/31/21 08:45 97 99/60 05/31/21 08:44 98 99/60 05/31/21 07:03 96 26 94 100 05/31/21 07:00 97 05/31/21 06:00 37.9 97 20 101/65 (77) 93 Mechanical Ventilator 100.00 05/31/21 05:18 95 101/65 05/31/21 05:00 38.0 94 27 56/41 (46) 92 Mechanical Ventilator 100.00 05/31/21 04:00 38.2 98 26 111/45 (67) 91 Mechanical Ventilator 100.00 05/31/21 04:00 89 Mechanical Ventilator 100 05/31/21 03:06 92 26 93 100 05/31/21 03:00 37.4 95 26 96/59 (71) 95 Mechanical Ventilator 100.00 05/31/21 02:00 38.4 96 26 116/69 (85) 96 Mechanical Ventilator 100.00 05/31/21 01:07 96 132/65 05/31/21 01:00 96 05/31/21 01:00 38.5 96 26 118/72 (87) 96 Mechanical Ventilator 100.00 05/31/21 00:00 94 Mechanical Ventilator 100 05/31/21 00:00 38.4 94 26 124/67 (86) 96 Mechanical Ventilator 100.00 05/30/21 23:00 38.4 92 26 123/66 (85) 95 Mechanical Ventilator 100.00 05/30/21 22:13 92 26 93 100 05/30/21 22:00 38.4 92 26 114/69 (84) 93 Mechanical Ventilator 100.00 05/30/21 21:44 91 123/68 05/30/21 21:06 96 122/74 05/30/21 21:00 38.5 97 26 119/62 (81) 93 Mechanical Ventilator 100.00 05/30/21 20:40 97 146/87 05/30/21 20:00 38.5 93 26 137/83 (101) 92 Mechanical Ventilator 100.00 05/30/21 20:00 92 Mechanical Ventilator 100 05/30/21 19:00 90 05/30/21 19:00 38.5 90 26 122/75 (91) 92 Mechanical Ventilator 100.00 05/30/21 18:51 102 26 91 100 05/30/21 18:36 92 129/84 05/30/21 18:00 38.5 94 26 136/79 (98) 93 Mechanical Ventilator 100.00 05/30/21 17:00 38.7 96 26 127/80 (96) 92 Mechanical Ventilator 100.00 05/30/21 16:03 92 110/70 05/30/21 16:00 38.8 92 17 110/70 (83) 90 Mechanical Ventilator 100.00 05/30/21 16:00 92 Mechanical Ventilator 100 05/30/21 15:13 101 146/77 05/30/21 15:00 39.1 98 26 146/72 (96) 94 Mechanical Ventilator 100.00 05/30/21 14:09 102 26 93 100 05/30/21 14:00 39.4 99 26 146/78 (100) 91 Mechanical Ventilator 100.00 05/30/21 13:40 77 132/86 05/30/21 13:00 39.4 96 26 83/63 (70) 90 Mechanical Ventilator 100.00 05/30/21 12:57 96 05/30/21 12:00 86 11 83/63 (70) 89 Mechanical Ventilator 100.00 05/30/21 12:00 92 Mechanical Ventilator 100 05/30/21 11:00 158 47 105/68 (80) 82 Mechanical Ventilator 100.00 05/30/21 10:38 126 112/84 05/30/21 10:23 39.4 05/30/21 10:08 156 26 83 100 05/30/21 10:00 109 26 88/59 (69) 83 Mechanical Ventilator 100.00 05/30/21 09:59 91/51 I & O 05/31/21 07:00 Intake Total 5150 ml Output Total 375 ml Balance 4775 ml Height & Weight Height: '" Weight: lbs. oz. kg; 48.67 BMI Method: General Appearance: Obese, Other (intubated and sedated) HEENT: Moist Mucous Membranes Neck: Normal Inspection, Supple Respiratory: Rhonci; No Wheezing; Other (on vent) Cardiovascular: Regular Rate, Rhythm, No Murmur Extremity: Pedal Edema Neurologic/Psychiatric: Other (sedated and paralyzed) Results Lab Laboratory Tests 05/30/21 05:45 05/30/21 15:15 05/31/21 03:10 Assessment/Plan Assessment/Plan Available chart/ vitals / labs / Images reviewed Video assessment done using teleICU camera, rest of exam as per RN Discussed with RN Events overnight : worsenign renal failue , proned FEBRILE I/O = pos 4 L Drips: LR 100 Pressors: levo 0.06 Sedation gtt: ( RASS ) propofol 30 fent 300 NIMBEX VENT SETTINGS. AC 18 -490 -100% + 20 . PAP 35 ABG reviewed EXAM PER RN Consultants: daniel khalil Hospital course: 05/30 - ARF , COVID , intubated 03/29 - > trnsferred to ICU, levo 100 % fio2 05/31 - MELIA, shock , 100% +20 , paralyzed A/P AHRF / ARDS due to severe COVID19 - intubated 03/30 AC 18 -490 -100% +18 . PAP 35 - will adjust vent accordisng ARDS protocol with tv 7 cc/kg IBW -> AC rr 26 tv 400 100 + 18 -prone position if able -paralyzed GKAK-Dotxfoajkev-0/COVID-19 PNA ( Not vaccinated , Dx 05/29 ) -Steroids IV - started 05/29- increased given h/o asthma and wheezing -Hypercoagulable state - on lovenox - with increased Cr - will discussed with pharmacy dose adjustment Shock - on levo , will follow coffee groung NG - ? GIB - improved MELIA - oliguria - will try colloids boluses with lasix - no renal /HD service available , not stable for transfer Metabolic acidosis ( MELIA ) + resp acidosis - will try to increase minute ventilation , if tolerates monitor for superimposed bact PNA - elev PCT - abx started 05/30 -Cx sputum , blood , ua Elv trop - cardiology follow Hyperflycemia - ISS , close f/up on steroids Coffee grounds secretion on OG - PPI bid , follow - Hb stable H/o asthma - monitor airway pressure - high dose of steroids - br- dilators h/o ETOH - start thiamine Lines : 05/30 PICC +central line (Central Line Necessity Reviewed) Anton: 05/29 OG: + Nutrition: Analgesia: Anxiety/ delirium VTE Prophylaxis: lovenoc Stress Ulcer Prophylaxis: ppi Glycemic Control: + Plans in collaboration with bedside consultants and IM MDs. Discussed with RN to reach out if any questions or concerns discussed with Dr Spears A total of 40 minutes of critical care time was devoted to this patient today, required to treat and/or prevent further deterioration of critical care condition ( as above ) . FAVIO FOREMAN MD May 31, 2021 09:35
[2021-05-31] MEDS ORDERED: FUROSEMIDE 40 MG/4 ML INJ (LASIX) IVP ONE (09:45)
--- NOTE | 2021-05-31 09:45 | Anesthesia-Procedure Note ---
Procedures/Interventions Procedure Start/Stop/Diagnosis Date of Procedure: May 31, 2021 Start Time: : Stop Time: 09:33 Arterial Line Arterial Line Catheter: 20G Type: Radial Location: Right Procedure: prepped, draped in sterile fashion, good wave-form was obtained, patient tolerated procedure well, no immediate complications, post procedure area cleaned, post procedure dressing applied RADHA RICH CRNA May 31, 2021 09:45
[2021-05-31] MEDS: ALBUMIN 25% 25 GM/100 ML 100 ML IV SCH ×2 (10:57→12:42)
[2021-05-31] MEDS: ENOXAPARIN 300 MG/3 ML (LOVENOX) MULTI-DOSE VIAL SQ SCH (11:53)
--- NOTE | 2021-05-31 12:31 | Cardiology Progress Note ---
Subjective Date Seen by Provider: May 31, 2021 Time Seen by Provider: 12:28 Subjective/Events-last exam Patient is sedated and intubated Review of Systems General: Other (Unable to provide review of system) Focused Exam Lactate Level 05/30/21 08:40: Lactic Acid Level 1.61 Objective-Cardiology Exam Last Set of Vital Signs Vital Signs 05/31/21 05/31/21 05/31/21 11:11 12:00 12:18 Temp 37.8 Pulse 96 Resp 26 B/P (MAP) 103/63 Pulse Ox 95 O2 Delivery Mechanical Ventilator O2 Flow Rate 100.00 FiO2 100 I&O Intake and Output 05/31/21 00:00 Intake Total 4550 ml Output Total 525 ml Balance 4025 ml Intake IV Total 4550 ml Output Urine Total 275 ml Gastric Drainage Total 250 ml Daily Weight Change Unsure General: Other (Sedated and intubated) HEENT: Atraumatic Neck: No JVD Heart: Regular Rate Extremities: No Clubbing, No Cyanosis Neuro: Other (Sedated and intubated) Psych/Mental Status: Other (Sedated and intubated) Results Lab Laboratory Tests 05/30/21 15:15 05/31/21 03:10 A/P-Cardiology Admission Diagnosis Acute respiratory failure Sinus tachycardia Type II myocardial infarction COVID-19 pneumonia Assessment/Plan Acute respiratory failure secondary to COVID-19 pneumonia, sedated and intubated, in prone positioning, managed by primary care team. Acute renal failure, oliguria, I gave her 500 mL of LR, continue using fluid adriana luses and evaluate tolerance and response Paroxysmal atrial tachycardia/sinus tachycardia secondary to respiratory failure and hypoxemia in addition to agitation, receiving IV beta-blockers as needed. Continue to monitor heart rate Elevated troponin level, probably type II myocardial infarction secondary to severe hypoxemia and tachycardia, underlying coronary artery disease cannot be excluded, no acute EKG changes suggestive of myocardial infarction. Continue with conservative management for now. Abnormal EKG with poor R wave progression in the anterior leads suggestive of old myocardial infarction, it could be secondary to positioning of the lead and respiratory failure. Continue to monitor the trend. Elevated liver enzymes, secondary to sepsis, receiving IV fluids, continue to mo nitor Obesity, BMI 48. Ventilator dependent. CARLA GODDARD MD May 31, 2021 12:30
[2021-05-31] MEDS ORDERED: LINEZOLID IVPB 300 ML IV ONE (17:15)
[2021-05-31 17:35] LABS: POTASSIUM 5.4 MMOL/L (3.6-5.0)
[2021-05-31 17:36] LABS: CALCIUM 7.9 MG/DL (8.5-10.1)
[2021-05-31 17:41] LABS: CREATININE SERUM 4.19 MG/DL (0.60-1.30)
[2021-05-31] MEDS ORDERED: DEXTROSE 50% 50 ML (IMS) SYR IV ONE (18:15)
[2021-05-31] MEDS ORDERED: inSUlin (REGULAR) HUMAN 1 UNIT/0.01 ML (CHARGE PER UNIT) IV ONE (18:15)
[2021-05-31] MEDS ORDERED: SODIUM BICARB 8.4% 50 MEQ/50 ML (ABBOTT) SYR IV ONE (18:15)
[2021-05-31] MEDS ORDERED: CALCIUM CHLORIDE 1 GM/10 ML (IMS) SYR IV ONE (18:15)
--- NOTE | 2021-05-31 18:15 | Tele-ICU Progress Note ---
Progress Note patient's UO did not responded to colloids transfusion , or lasix still anuric repeated BMP confirmed worsening of crearining and rising K RN updated , he wich to continue all therapeutic measures , but change her code status to DNR will tx hyperK , follow Bedside physicians on case to be updated by bedside RN. additional CCT 20 min Focused Exam Lactate Level 05/30/21 08:40: Lactic Acid Level 1.61 Height, Weight, BMI Height: '" Weight: lbs. oz. kg; 48.67 BMI Method: FAVIO FOREMAN MD May 31, 2021 18:15
[2021-05-31] MEDS: MUPIROCIN 2% OINT 22 GM (BACTROBAN) TUBE NSEACH SCH (20:49)
[2021-05-31 22:59] LABS: POTASSIUM 5.2 MMOL/L (3.6-5.0)
[2021-05-31 23:00] LABS: CALCIUM 8.2 MG/DL (8.5-10.1)
[2021-05-31 23:05] LABS: CREATININE SERUM 4.45 MG/DL (0.60-1.30)
[2021-06-01] VITALS (20 sets, daily range): BP systolic 105–115; BP diastolic 61–71
[2021-06-01] MEDS: inSUlin ASPART (NovoLOG) 1 UNIT/0.01 ML (CHARGE PER UNIT) SC SCH ×3 (00:19→12:28)
[2021-06-01] MEDS: CISATRACURIUM DRIP 250 ML IV SCH ×4 (00:19→14:30)
[2021-06-01] MEDS: NOREPINEPHRINE 8 MG/250 ML 250 ML IV SCH ×3 (00:19→10:58)
[2021-06-01] MEDS: LACTATED RINGERS 1,000 ML IV SCH ×2 (00:21→10:54)
[2021-06-01] MEDS: RT-ALBUTEROL HFA 8.5 GM INHALER IH SCH ×3 (01:45→11:03)
[2021-06-01 02:30] LABS: BASOPHILS # (AUTO) 0.1 10^3/uL (0.0-0.1); BASOPHILS % (AUTO) 1 % (0-10); EOSINOPHILS % (AUTO) 0 % (0-10); HEMATOCRIT 44 % (35-52); HEMOGLOBIN 13.6 g/dL (11.5-16.0); LYMPHOCYTES % (AUTO) 5 % (12-44); MEAN CORPUSCULAR HEMOGLOBIN 30 pg (25-34); MEAN CORPUSCULAR HGB CONC 31 g/dL (32-36); MEAN CORPUSCULAR VOLUME 96 fL (80-99); MEAN PLATELET VOLUME 10.9 fL (9.0-12.2); MONOCYTES # (AUTO) 1.6 10^3/uL (0.0-1.0); MONOCYTES % (AUTO) 8 % (0-12); NEUTROPHILS # (AUTO) 14.9 10^3/uL (1.8-7.8); NEUTROPHILS % (AUTO) 78 % (42-75); PLATELET COUNT 246 10^3/uL (130-400)
[2021-06-01 02:43] LABS: POTASSIUM 5.2 MMOL/L (3.6-5.0)
[2021-06-01 02:44] LABS: CALCIUM 8.1 MG/DL (8.5-10.1)
[2021-06-01 02:48] LABS: PHOSPHORUS 6.3 MG/DL (2.3-4.7)
[2021-06-01 02:49] LABS: CREATININE SERUM 4.68 MG/DL (0.60-1.30)
[2021-06-01 02:51] LABS: MAGNESIUM 1.8 MG/DL (1.6-2.4)
[2021-06-01] MEDS: PROPOFOL DRIP (ICU) 100 ML IV SCH ×4 (02:51→13:29)
[2021-06-01] MEDS: fentaNYL DRIP PRE-MIX 250 ML IV SCH ×3 (02:51→15:17)
[2021-06-01] MEDS: ESMOLOL DRIP PREMIX 250 ML IV SCH ×2 (02:51→11:03)
[2021-06-01 02:58] LABS: ABG BASE EXCESS -8.1 MMOL/L (-2.5-2.5); ABG OXYGEN SATURATION 98 % (94-100); ABG PCO2 48 MMHG (35-45); ABG PO2 103 MMHG (79-93); ABG TCO2 19.8 MMOL/L (21.0-31.0)
[2021-06-01 02:59] LABS: ALLENS TEST ARTLINE; INSPIRED O2 70%; PATIENT TEMP 37.4; VENTILATOR YES
[2021-06-01 03:00] LABS: ABG PH 7.21 (7.37-7.43)
[2021-06-01] MEDS: POTASSIUM CL 10MEQ/50ML IVPB 50 ML IV SCH (05:11)
[2021-06-01] MEDS: KCL 20 MEQ TAB (K-DUR) PO SCH (05:11)
[2021-06-01] MEDS: MAGNESIUM 1 GM/100 ML IVPB 100 ML IV SCH (05:11)
[2021-06-01] MEDS: methylPREDNISolone 40 MG/ML (Solu-MEDROL) VIAL IV SCH ×2 (05:37→13:35)
[2021-06-01] MEDS: MUPIROCIN 2% OINT 22 GM (BACTROBAN) TUBE NSEACH SCH (08:06)
[2021-06-01] MEDS: cefTRIAXone 1,000 MG in WATER (STERILE) FOR INJECTION 10 ML IV SCH (08:06)
[2021-06-01] MEDS: PANTOPRAZOLE 40 MG (PROTONIX) VIAL IV SCH (08:06)
[2021-06-01 08:12] LABS: BILIRUBIN,URINE 2+ (NEGATIVE)
--- NOTE | 2021-06-01 09:16 | Cardiology Progress Note ---
Subjective Date Seen by Provider: Jun 01, 2021 Time Seen by Provider: 09:12 Subjective/Events-last exam Patient is sedated and intubated, ventilator dependent Review of Systems General: Other (Unable to provide review of system) Focused Exam Lactate Level 05/30/21 08:40: Lactic Acid Level 1.61 Objective-Cardiology Exam Last Set of Vital Signs Vital Signs 06/01/21 06/01/21 06:52 09:00 Temp 37.3 Pulse 90 Resp 26 B/P (MAP) 109/63 (78) Pulse Ox 94 O2 Delivery Mechanical Ventilator O2 Flow Rate 90.00 FiO2 90 I&O Intake and Output 06/01/21 00:00 Intake Total 3550 ml Output Total 175 ml Balance 3375 ml Intake IV Total 3550 ml Output Urine Total 175 ml General: Other (Sedated and intubated) HEENT: Atraumatic Neck: No JVD Heart: Regular Rate Extremities: No Clubbing, No Cyanosis Neuro: Other (Sedated and intubated) Psych/Mental Status: Other (Sedated and intubated) Results Lab Laboratory Tests 05/31/21 17:20 05/31/21 22:45 06/01/21 02:20 Laboratory Tests Test 05/31/21 12:40 05/31/21 17:20 05/31/21 22:45 06/01/21 02:20 Range/Units Glucometer 143 H 70-110 MG/DL Sodium Level 138 136 136 135-145 MMOL/L Potassium Level 5.4 H 5.2 H 5.2 H 3.6-5.0 MMOL/L Chloride Level 105 104 104 98-107 MMOL/L Carbon Dioxide Level 16 L 15 L 15 L 21-32 MMOL/L Anion Gap 17 H 17 H 17 H 5-14 MMOL/L Blood Urea Nitrogen 51 H 55 H 58 H 7-18 MG/DL Creatinine 4.19 #H 4.45 H 4.68 H 0.60-1.30 MG/DL Estimat Glomerular Filtration Rate 11 10 9 BUN/Creatinine Ratio 12 12 12 Glucose Level 150 H 186 H 161 H 70-105 MG/DL Calcium Level 7.9 L 8.2 L 8.1 L 8.5-10.1 MG/DL White Blood Count 19.0 H 4.3-11.0 10^3/uL Red Blood Count 4.58 3.80-5.11 10^6/uL Hemoglobin 13.6 11.5-16.0 g/dL Hematocrit 44 35-52 % Mean Corpuscular Volume 96 80-99 fL Mean Corpuscular Hemoglobin 30 25-34 pg Mean Corpuscular Hemoglobin Concent 31 L 32-36 g/dL Red Cell Distribution Width 14.5 10.0-14.5 % Platelet Count 246 130-400 10^3/uL Mean Platelet Volume 10.9 9.0-12.2 fL Immature Granulocyte % (Auto) 8 % Neutrophils (%) (Auto) 78 H 42-75 % Lymphocytes (%) (Auto) 5 L 12-44 % Monocytes (%) (Auto) 8 0-12 % Eosinophils (%) (Auto) 0 0-10 % Basophils (%) (Auto) 1 0-10 % Neutrophils # (Auto) 14.9 H 1.8-7.8 10^3/uL Lymphocytes # (Auto) 1.0 1.0-4.0 10^3/uL Monocytes # (Auto) 1.6 H 0.0-1.0 10^3/uL Eosinophils # (Auto) 0.0 0.0-0.3 10^3/uL Basophils # (Auto) 0.1 0.0-0.1 10^3/uL Immature Granulocyte # (Auto) 1.5 H 0.0-0.1 10^3/uL Blood Gas Puncture Site RIGHT RADIAL Blood Gas Patient Temperature 37.4 Arterial Blood pH 7.21 *L 7.37-7.43 Arterial Blood Partial Pressure CO2 48 H 35-45 MMHG Arterial Blood Partial Pressure O2 103 H 79-93 MMHG Arterial Blood HCO3 18 L 23-27 MMOL/L Arterial Blood Total CO2 19.8 L 21.0-31.0 MMOL/L Arterial Blood Oxygen Saturation 98 94-100 % Arterial Blood Base Excess -8.1 L -2.5-2.5 MMOL/L Luke Test ARTLINE Blood Gas Ventilator Setting YES Blood Gas Inspired Oxygen 70% Phosphorus Level 6.3 H 2.3-4.7 MG/DL Magnesium Level 1.8 1.6-2.4 MG/DL Triglycerides Level 401 #H <150 MG/DL Test 06/01/21 05:45 Range/Units Troponin I 34.133 *H <0.028 NG/ML A/P-Cardiology Admission Diagnosis Acute respiratory failure Sinus tachycardia Type II myocardial infarction COVID-19 pneumonia Assessment/Plan Acute respiratory failure secondary to COVID-19 pneumonia, sedated and intubated, managed by primary care team Acute renal failure, oliguria, will require dialysis soon Non-ST elevation myocardial infarction, elevation in troponin, could be secondary to myocarditis versus advanced coronary artery disease, EKG showed persistent QS in the anterolateral leads. Not a candidate at this point for cardiac catheterization due to renal insufficiency, consideration for cardiac catheterization once patient have dialysis available, I strongly recommend transferring to a tertiary care center Paroxysmal atrial tachycardia/sinus tachycardia secondary to respiratory failure and hypoxemia in addition to agitation, receiving IV beta-blockers, continue to monitor Abnormal EKG with poor R wave progression in the anterior leads suggestive of old myocardial infarction, it could be secondary to positioning of the lead and respiratory failure. Continue to monitor the trend. Elevated liver enzymes, secondary to sepsis, receiving IV fluids, continue to monitor Obesity, BMI 48. Ventilator dependent. CARLA GODDARD MD Jun 01, 2021 09:16
--- NOTE | 2021-06-01 09:27 | Progress Note - Hospitalist ---
Subjective HPI/CC On Admission Date Seen by Provider: Jun 01, 2021 Time Seen by Provider: 09:22 Pt is a 60yoCF with a PMH of asthma who presented to an outside ER in [place], [place] due to SOB. She is intubated and sedated and no ROS possible. All ROS is from the chart and from her . He reports that he got COVID last week and she had been caring for him. 1 week ago she started to feel ill and yesterday acutely worsened. Her main symptoms were SOB and weakness. Her states that he was barely able to get her to the car to bring her to the ER. On arrival to the ER she was hypoxic in the 70s and placed on HFNC without much improvement so was plced on Vapotherm. The ER in [place] attempted to transfer her to over 30 facilities for ICU level care. She continued to decompensate in the ER and intubation prior to transfer was felt to be the safest route. Subjective/Events-last exam Pt remains intubated and sedated. No ROS possible. RN reports minimal urine output overnight despite albumin and lasix attempts yesterday. Discussed the situation with her and her need for dialysis. He understands severity of illness but would like to try to transfer for dialysis. He states he feels like she's already gone but wants to make sure he didn't give up too soon. We discussed her very poor prognosis regardless and he again expressed understanding. We also discussesd the difficulties with transfer but I advised him we will make every attempt to get her to another facility for dialysis. He acknowledged the situation as it is what happened in the ER when they had to call 30 different hospitals to get her here. Focused Exam Lactate Level 05/30/21 08:40: Lactic Acid Level 1.61 Objective Exam Vital Signs Vital Signs Date Time Temp Pulse Resp B/P (MAP) Pulse Ox O2 Delivery O2 Flow Rate FiO2 06/01/21 09:21 90 109/63 06/01/21 09:00 37.3 26 94 Mechanical Ventilator 90.00 06/01/21 06:52 90 Capillary Refill : General Appearance: Chronically ill, Obese, Other (on vent) Respiratory: Decreased Breath Sounds, Other (on vent) Cardiovascular: Regular Rate, Rhythm, No Murmur Gastrointestinal: Normal Bowel Sounds, Soft Genital/Rectal: Other (son in place) Neurologic/Psychiatric: Other (sedated and paralyzed) Results/Procedures Lab Laboratory Tests 05/31/21 17:20 05/31/21 22:45 06/01/21 02:20 Patient resulted labs reviewed. Assessment/Plan Assessment and Plan Assess & Plan/Chief Complaint Acute hypoxic respiratory failure due to COVID19 Asthma Shock Currently sedated and paralyzed on ventilator, tolerating proning TeleICU consulted for vent management, appreciate recs Solumedrol Procal slightly up today, if stabilizes or lower tomorrow will consider ba ricitnib MAT protocol Continue IV abx undifferentiated shock- currently on levophed, mostly likely septic Acute renal failure Creatinine up to 4.68 today Scatn urine output overnight Monitor renal function closely As she is paralyzed and on such high vent settings I worry she is too unstabl e for transfer but if continue with oliguria, discussed with as is above and will attempt to transfer for nephrology Elevated troponin troponin at outside facility 0.2 up to 34 today Cardiology consulted, appreciate recs- plan for conservative management Telemetry H/o alcohol abuse chronic transaminitis Trend liver enzymes Per she quit drinking 1 month [employer] Thiamine Hyperglycemia- improved denies history of DM Likely due to steroids Diagnosis/Problems Diagnosis/Problems (1) COVID-19 (2) Asthma Qualifiers: Asthma severity: moderate Asthma persistence: persistent Asthma complication type: unspecified Qualified Codes: J45.40 - Moderate persistent asthma, uncomplicated (3) Obesity (4) Transaminitis (5) Acute respiratory failure CHUCK DE LEÓN MD Jun 01, 2021 09:27
[2021-06-01] MEDS: ENOXAPARIN 300 MG/3 ML (LOVENOX) MULTI-DOSE VIAL SQ SCH (10:55)
[2021-06-01] MEDS ORDERED: LINEZOLID IVPB 300 ML IV SCH (11:30)
--- NOTE | 2021-06-01 11:37 | Tele-ICU Progress Note ---
Subjective Date Seen by a Provider: Jun 01, 2021 Time Seen by a Provider: 11:36 Sepsis Event Evaluation Height, Weight, BMI Height: '" Weight: lbs. oz. kg; 48.67 BMI Method: Focused Exam Lactate Level 05/30/21 08:40: Lactic Acid Level 1.61 Exam Exam Patient acknowledged, consented, and participated in this virtual visit which was conducted using real time audio/video Vital Signs Date Time Temp Pulse Resp B/P (MAP) Pulse Ox O2 Delivery O2 Flow Rate FiO2 06/01/21 11:04 89 26 91 90 06/01/21 11:00 37.3 89 26 106/66 (79) 91 Mechanical Ventilator 90.00 06/01/21 10:58 89 111/63 06/01/21 10:00 37.3 89 26 111/63 (79) 94 Mechanical Ventilator 90.00 06/01/21 09:21 90 109/63 06/01/21 09:00 37.3 90 26 109/63 (78) 94 Mechanical Ventilator 90.00 06/01/21 08:24 94 Mechanical Ventilator 90 06/01/21 08:00 37.3 88 26 112/64 (80) 94 Mechanical Ventilator 90.00 06/01/21 07:00 37.3 88 50 113/64 (80) 94 Mechanical Ventilator 90.00 06/01/21 07:00 89 06/01/21 06:52 87 26 94 90 06/01/21 06:00 37.2 89 26 114/64 (81) 94 Mechanical Ventilator 90.00 06/01/21 05:37 Mechanical Ventilator 90.00 06/01/21 05:36 87 116/65 06/01/21 05:35 87 116/65 06/01/21 05:00 37.3 90 26 115/64 (81) 95 Mechanical Ventilator 100.00 06/01/21 04:00 92 Mechanical Ventilator 100 06/01/21 04:00 37.4 90 26 109/61 (77) 93 Mechanical Ventilator 100.00 06/01/21 03:05 92 88/53 06/01/21 03:04 Mechanical Ventilator 100.00 06/01/21 03:00 37.4 92 26 109/61 (77) 93 Mechanical Ventilator 70.00 06/01/21 02:51 89 111/62 06/01/21 02:00 37.5 92 26 111/64 (80) 96 Mechanical Ventilator 70.00 06/01/21 01:45 92 26 96 70 06/01/21 01:00 37.5 92 25 111/64 (80) 95 Mechanical Ventilator 70.00 06/01/21 01:00 92 06/01/21 00:19 92 110/64 06/01/21 00:00 95 Mechanical Ventilator 70 06/01/21 00:00 37.6 93 26 110/62 (78) 95 Mechanical Ventilator 70.00 05/31/21 23:00 37.6 73 26 110/62 (78) 96 Mechanical Ventilator 70.00 05/31/21 22:32 66 111/61 05/31/21 22:00 37.6 57 24 114/62 (79) 97 Mechanical Ventilator 70.00 05/31/21 21:58 56 26 97 70 05/31/21 21:00 37.6 93 26 114/63 (80) 96 Mechanical Ventilator 70.00 05/31/21 20:54 81 88/56 05/31/21 20:00 37.6 80 26 107/60 (76) 95 Mechanical Ventilator 70.00 05/31/21 20:00 93 Mechanical Ventilator 70 05/31/21 19:00 37.6 96 26 114/60 (78) 95 Mechanical Ventilator 70.00 05/31/21 19:00 96 05/31/21 18:50 99 92/43 05/31/21 18:07 99 26 95 70 05/31/21 18:00 37.7 96 26 108/61 (77) 95 Mechanical Ventilator 70.00 05/31/21 17:00 37.7 97 26 92/53 (66) 94 Mechanical Ventilator 70.00 05/31/21 16:49 99 119/63 05/31/21 16:46 99 119/63 05/31/21 16:00 37.7 99 26 119/63 (81) 95 Mechanical Ventilator 70.00 05/31/21 15:52 Mechanical Ventilator 70.00 05/31/21 15:35 95 Mechanical Ventilator 70 05/31/21 15:00 37.7 98 26 117/62 (80) 95 Mechanical Ventilator 80.00 05/31/21 14:34 99 26 95 70 05/31/21 14:00 37.7 100 26 117/62 (80) 95 Mechanical Ventilator 80.00 05/31/21 14:00 Mechanical Ventilator 80.00 05/31/21 13:00 100 05/31/21 13:00 37.7 110 25 120/63 (82) 93 Mechanical Ventilator 90.00 05/31/21 12:30 Mechanical Ventilator 90.00 05/31/21 12:18 96 103/63 05/31/21 12:17 96 103/63 05/31/21 12:00 37.8 102 26 125/64 (84) 95 Mechanical Ventilator 100.00 I & O 06/01/21 07:00 Intake Total 5150 ml Output Total 237 ml Balance 4913 ml Height & Weight Height: '" Weight: lbs. oz. kg; 48.67 BMI Method: General Appearance: Chronically ill, Obese, Other (on vent) HEENT: Moist Mucous Membranes Neck: Normal Inspection, Supple Respiratory: Decreased Breath Sounds, Other (on vent) Cardiovascular: Regular Rate, Rhythm, No Murmur Extremity: Pedal Edema Neurologic/Psychiatric: Other (sedated and paralyzed) Results Lab Laboratory Tests 05/30/21 15:15 05/31/21 03:10 05/31/21 17:20 05/31/21 22:45 06/01/21 02:20 Assessment/Plan Assessment/Plan (Tele-ICU Physician , Progress Note ) Available chart/ vitals / labs / Images reviewed Video assessment done using teleICU camera, rest of exam as per RN Discussed with RN Events overnight : worsenign renal failue , proned FEBRILE I/O = pos 10 l since admission Pressors: levo 0.17 Sedation gtt: ( RASS ) propofol 30 fent 300 NIMBEX VENT SETTINGS. AC 18 -490 -100% + 20 . PAP 35 ABG reviewed EXAM PER RN Consultants: daniel khalil Hospital course: 05/30 - ARF , COVID , intubated 03/29 - > trnsferred to ICU, levo 100 % fio2 05/31 - MELIA, shock , 100% +20 , paralyzed A/P AHRF / ARDS due to severe COVID19 - intubated AC rr 26 tv 400 100 +20 -prone position if able -paralyzed - will try to decrease dose [id number]-3/COVID-19 PNA ( Not vaccinated , Dx 05/29 ) -Steroids IV - started 05/29- increased given h/o asthma and wheezing -Hypercoagulable state - on lovenox - with increased Cr - lovenox dosing as per pharmacy dose adjustment Shock - on levo MELIA= worsening - oliguria - failed yesterday colloids boluses and lasix lasix -kyperkalemia - Tx - follow q 6 - no renal /HD service available , not stable for transfer Metabolic acidosis ( MELIA ) + resp acidosis - will try to increase minute ventilation , if tolerates superimposed bact PNA - elev PCT - abx started 05/30 =+MRSA in nairs - Zyvoxx -Cx sputum , blood , ua Elv trop - cardiology follow - lovenox Hyperflycemia - ISS , close f/up on steroids Coffee grounds secretion on OG - PPI bid , follow - Hb stable H/o asthma - monitor airway pressure - high dose of steroids - br- dilators h/o ETOH - start thiamine as per discussion with family by Dr Spears - DNR Lines : 05/30 PICC +central line (Central Line Necessity Reviewed) Anton: 05/29 OG: + Nutrition: Analgesia: Anxiety/ delirium VTE Prophylaxis: lovenoc Stress Ulcer Prophylaxis: ppi Glycemic Control: + Plans in collaboration with bedside consultants and IM MDs. Discussed with RN to reach out if any questions or concerns discussed with Dr Spears A total of 40 minutes of critical care time was devoted to this patient today, required to treat and/or prevent further deterioration of critical care condition ( as above ) . FAVIO FOREMAN MD Jun 01, 2021 11:37
[2021-06-01 14:09] LABS: CALCIUM 7.8 MG/DL (8.5-10.1); CREATININE SERUM 5.34 MG/DL (0.60-1.30); POTASSIUM 5.4 MMOL/L (3.6-5.0)
[2021-06-01] MEDS ORDERED: CALCIUM CHLORIDE 1 GM/10 ML (IMS) SYR IV ONE (14:15)
[2021-06-01] MEDS ORDERED: inSUlin (REGULAR) HUMAN 1 UNIT/0.01 ML (CHARGE PER UNIT) IV ONE (14:15)
[2021-06-01] MEDS ORDERED: DEXTROSE 50% 50 ML (IMS) SYR IV ONE (14:15)
[2021-06-01] MEDS ORDERED: SODIUM BICARB 8.4% 50 MEQ/50 ML (ABBOTT) SYR IV ONE (14:15)
[2021-06-01] MEDS ORDERED: SODIUM BICARB 8.4% 50 MEQ/50 ML (ABBOTT) SYR ONE ×2 (14:37→14:54)
[2021-06-01] MEDS ORDERED: CALCIUM CHLORIDE 1 GM/10 ML (IMS) SYR ONE (14:37)
[2021-06-01] MEDS ORDERED: DEXTROSE 50% 50 ML (IMS) SYR ONE (14:37)
[2021-06-01] MEDS ORDERED: inSUlin (REGULAR) HUMAN 1 UNIT/0.01 ML (CHARGE PER UNIT) ONE (14:37)
[2021-06-01] MEDS ORDERED: AMIODARONE (BOLUS) 150 MG/3 ML IV ONE (15:01)
--- NOTE | 2021-06-01 15:55 | Discharge Summary ---
Discharge Summary Date of Admission May 30, 2021 at 05:13 Date of Discharge Admission Diagnosis Acute hypoxic respiratory failure Comfort Measures/ Patient was admitted due to acute hypoxic respiratory failure secondary to COVID-19. She required mechanical ventilation and was profoundly ill. She was treated with Decadron. She was unable to get remdesivir or baricitinib due to her high oxygen requirement and very elevated procalcitonin concerning for bacterial infection. She was treated with IV antibiotics.She was found to have an elevated troponin and cardiology was consulted. Despite aggressive measures she developed acute renal failure and became oliguric. I discussed with her her Jabari about the risk and benefits of possible transfer. We discussed that without pursuing dialysis it was very likely she would but that even with that that was the likely outcome regardless. We discussed the risk of transfer and he elected to try to get her somewhere that could do dialysis. Had an accepting physician in [facility] in [facility]. When life sleeve flight crew arrived and she was being prepared for transfer she developed ventricular arrhythmia. I called and discussed this with her Jabari again who had made her a DNR the day before. He again confirmed that he did not want CPR or resuscitative measures. She on June 01. Discharge Diagnosis Acute hypoxic respiratory failure due to COVID19 Asthma Shock Acute renal failure Elevated troponin H/o alcohol abuse chronic transaminitis Hyperglycemia- improved (1) COVID-19 (2) Asthma Qualifiers: Qualified Codes: J45.40 - Moderate persistent asthma, uncomplicated (3) Obesity (4) Transaminitis (5) Acute respiratory failure CHUCK DE LEÓN MD Jun 01, 2021 15:55
--- NOTE | 2021-06-04 06:15 | Physician Query Clarification ---
PQ-Intro New Diagnosis Admission/Discharge Admission Date: May 30, 2021 at 05:13 Discharge Date: Jun 01, 2021 at 15:47 CHUCK Benítez MD The medical record reflects the following clinical scenario: History/Risk Factors: 60 y/o female patient admitted with acute hypoxic respiratory failure due to COVID-19, sepsis was documented in the medical record. Hand P, 05/30: Acute hypoxic respiratory failure due to COVID-19, asthma and elevated troponin. Progress notes, 05/31: Acute hypoxic respiratory failure due to COVID-19, shock undifferentiated most likely septic, acute renal failure. Cardiology progress notes, 05/31: Acute hypoxic respiratory failure due to COVID pneumonia, elevated troponin due to type II [place], elevated liver enzymes secondary to sepsis. Clinical Findings: WBC-11.0, 21.0 H, pulse-117, temp-38.9, Treatment: IV antibiotics, mechanical ventilation, vapotherm, made DNR palliative care and . Question: What condition best reflects the above clinical scenario? Please document a response in the Progress Noter or Discharge Summary. 1. Sepsis due to/associated with COVID pneumonia, present on admission 2. Sepsis not due to/associated with COVD pneumonia 3. Other, with explanation of the clinical findings. 4. Clinically undetermined, no explanation for the clinical findings. PHYSICIAN RESPONSE What condition reflects above: 1 Please remember a lack of response to the above will prompt a phone page by [facility] staff. In responding to this query, please exercise your independent professional judgment. The purpose of this communication is to more accurately reflect the complexity of your patients condition. The fact that a question is asked does n ot imply that any particular answer is desired or expected. Thank you for your timely response to this clarification. Requestors name: [ ] Phone # [ ] THIS PHYSICIAN QUERY FORM IS A PERMANENT PART OF THE MEDICAL RECORD RAMONA SCOTT Jun 04, 2021 06:15 CHUCK DE LEÓN MD Jun 12, 2021 14:28
== END 2021-06-01 15:47 | disposition expired | DRG 871 ==
LOC: ICU 05-30 05:13
PROVIDERS: ADMIT Family Medicine; ATTEND Family Medicine
PROC: 5A1945Z Respiratory Ventilation, 24-96 Consecutive Hours (ICD-10-PCS; principal; 2021-05-30)
PROC: 03HY32Z Insertion of Monitoring Device into Upper Artery, Percutaneous Approach (ICD-10-PCS; 2021-05-30)
PROC: 05H633Z Insertion of Infusion Device into Left Subclavian Vein, Percutaneous Approach (ICD-10-PCS; 2021-05-30)
PROC: 0BH17EZ Insertion of Endotracheal Airway into Trachea, Via Natural or Artificial Opening (ICD-10-PCS; 2021-05-30)
DX: A41.89 Other specified sepsis (principal); U07.1 COVID-19; J12.82 Pneumonia due to coronavirus disease 2019; J80 Acute respiratory distress syndrome; J15.9 Unspecified bacterial pneumonia; I21.A1 Myocardial infarction type 2; R57.9 Shock, unspecified; N17.9 Acute kidney failure, unspecified; Z68.42 Body mass index [BMI] 45.0-49.9, adult; E87.2 Acidosis; R73.9 Hyperglycemia, unspecified; Z73.0 Burn-out; T38.0X5A Adverse effect of glucocorticoids and synthetic analogues, initial encounter; E66.9 Obesity, unspecified; R00.0 Tachycardia, unspecified; Z87.891 Personal history of nicotine dependence; R77.8 Other specified abnormalities of plasma proteins; J45.40 Moderate persistent asthma, uncomplicated
CPT/HCPCS: 36415; 36569; 71045; 76937; 80048; 80076; 81000; 82805; 82947; 83605; 83735; 83880; 84100; 84145; 84478; 84484; 85007; 85025; 85027; 85379; 87040; 87070; 87077; 87081; 87088; 87185; 87186; 87205; 93005; 94002; 94003; 94640; 94799